=== PATIENT | male | born 2000 | race African-American/Black ===

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

== ENCOUNTER 2024-05-02 18:13 | Emergency (ER) | payer OTHER ==
[~2024-05-02] VITALS: Ht 182.9 cm; Wt 75.0 kg
[2024-05-02 18:30] VITALS: O2SAT 100
[2024-05-02] MEDS ORDERED: DOXY100C5 MT (21:08)
[2024-05-02 21:30] LABS: CLARITY URINE CLEAR (CLEAR); COLOR URINE YELLOW (YELLOW); GLUCOSE URINE NEGATIVE (NEGATIVE); KETONES URINE 3+ (NEGATIVE); LEUKOCYTE ESTERASE URINE TRACE (NEGATIVE); NITRITE URINE NEGATIVE (NEGATIVE); OCCULT BLOOD URINE NEGATIVE (NEGATIVE); PROTEIN URINE TRACE (NEGATIVE); SPECIFIC GRAVITY URINE 1.021 (1.005-1.030)
[2024-05-02 21:55] LABS: BACTERIA URINE TRACE; RBC URINE NONE SEEN /hpf (0-2); SQUAMOUS EPITHELIAL CELL URINE RARE /lpf (RARE/1+); WBC URINE 0-2 /hpf (0-2)
[2024-05-02] MEDS: CEFTRIAXONE SODIUM 500MG VIAL IM ONE (22:00)
[2024-05-02 22:04] VITALS: BP 149/47; PULSE 72; RESP 18; TEMP 98.3
[2024-05-04 19:11] LABS: CHLAMYDIA TRACHOMATIS NAA Negative (Negative); NEISSERIA GONORRHOEAE NAA Negative (Negative)
== END 2024-05-02 22:11 | disposition home or self-care (01) ==
LOC: ER 18:13
DX: N45.1 Epididymitis (principal)
CPT/HCPCS: 99285; 93976; 87491; 87591; 81003; 76870; 96372; J0696